=== PATIENT | female | born 1940 | race Caucasian/White ===

== ENCOUNTER → 2016-07-21 | Outpatient (CLI) | payer BC ==
--- NOTE | 2016-07-21 16:21 | KCIC ---
PROCEDURE Bone mineral density exam HISTORY Osteopenia, postmenopausal, takes calcium supplement, steroid use, takes thyroid medication COMPARISON None FINDINGS Bone mineral density exam utilizing DEXA was performed. Left hip bone mineral density of 0.808 grams/centimeter squared corresponds with T-score-1.1 and a Z-score 0.6. Lumbar spine bone mineral density of 1.112 grams/centimeter squared corresponds with T-score 0.6 and a Z-score of 2.9. World Health Organization criteria for bone mineral density interpretation: Normal T-score greater than or equal to-1.0, Osteopenia T score between-1.0 and-2.5, Osteoporosis T-score less than or equal to-2.5. IMPRESSION 1. There is osteopenia of the left hip. 2. There is normal bone density of the lumbar spine. Electronically signed by: Juan Osorio MD (July 21, 2016 16:20:30)
== END | disposition home or self-care (01) ==
LOC: KCIC DEXA 15:38
PROVIDERS: ATTEND Internal Medicine
DX: Z78.0 Asymptomatic menopausal state (principal); M85.88 Other specified disorders of bone density and structure, other site
CPT/HCPCS: 77080

== ENCOUNTER 2016-10-03 20:02 | Emergency (ER) | payer OTHER, BC ==
[~2016-10-03] VITALS: Ht 154.9 cm; Wt 69.4 kg
[2016-10-03 20:27] VITALS: BP 142/86
[2016-10-03] MEDS ORDERED: DIPHTH,PERTUSS(ACELL),TET TOX 0.5 ML DISP.SYRIN. VAX IM ONE (20:30)
[2016-10-03] MEDS ORDERED: NEOMY/BACITR/POLYMYXIN OINT PACKET. TP ONE (21:00)
[2016-10-03] MEDS ORDERED: ONDANSETRON ODT 4 MG TAB.RAPDIS. PO ONE (21:00)
[2016-10-03] MEDS ORDERED: CONTRAST GIVEN MC PRN (22:15)
[2016-10-03] MEDS ORDERED: IOHEXOL 300 MG/ML 75 ML VIAL IV ONE (22:30)
[2016-10-03 22:44] LABS: CALCIUM 11.1 mg/dL (8.5-10.1); CREATININE 0.9 mg/dL (0.6-1.0); GFR 61.4; POTASSIUM 4.1 mmol/L (3.5-5.1)
[2016-10-03 22:48] LABS: BASO # 0.1 x10^3/uL (0.0-0.2); BASO % 1 % (0-3); EOS % 1 % (0-3); HEMATOCRIT 39.9 % (36.0-47.0); HEMOGLOBIN 13.1 g/dL (12.0-15.5); LYMPH # 2.5 x10^3/uL (1.0-4.8); LYMPH % 21 % (24-48); MEAN CORPUSCULAR HEMOGLOBIN 29 pg (25-35); MEAN CORPUSCULAR HGB CONC 33 g/dL (31-37); MEAN CORPUSCULAR VOLUME 89 fL (79-100); MONO % 8 % (0-9); NEUT % 70 % (31-73); PLATELET COUNT 284 x10^3/uL (140-400); RED BLOOD COUNT 4.47 x10^6/uL (3.50-5.40); WHITE BLOOD COUNT 12.2 x10^3/uL (4.0-11.0)
[2016-10-03 22:56] LABS: BILIRUBIN,URINE NEGATIVE (NEG); GLUCOSE,URINE NEGATIVE (NEG); NITRITE,URINE NEGATIVE (NEG); PROTEIN,URINE 30 mg/dL (NEG-TRACE); UROBILINOGEN,URINE 0.2 mg/dL (0.2 mg/dL)
[2016-10-03 22:58] LABS: PROTHROMBIN TIME PATIENT 12.6 SEC (11.7-14.0)
[2016-10-03 23:12] LABS: WBC,URINE 20-40 /HPF (0-4)
[2016-10-03 23:13] LABS: BACTERIA,URINE MOD /HPF (0-FEW); SQUAMOUS EPITHELIAL CELL,UR MOD /LPF
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
[2016-10-04] MEDS ORDERED: CIPR500T94 PO (00:42)
[2016-10-04] MEDS ORDERED: ACET-704 PO (00:42)
[2016-10-04] MEDS ORDERED: CYCL10TA2 PO (00:42)
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
[2016-10-04 03:43] LABS: POTASSIUM ISTAT 3.7 mmol/L (3.5-5.0)
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
== END 2016-10-04 00:45 | disposition home or self-care (01) ==
LOC: ER 20:02
DX: S50.12XA Contusion of left forearm, initial encounter (principal); S60.022A Contusion of left index finger without damage to nail, initial encounter; S60.221A Contusion of right hand, initial encounter; S80.02XA Contusion of left knee, initial encounter; S80.01XA Contusion of right knee, initial encounter; S27.321A Contusion of lung, unilateral, initial encounter; N39.0 Urinary tract infection, site not specified; V49.49XA Driver injured in collision with other motor vehicles in traffic accident, initial encounter; E03.9 Hypothyroidism, unspecified; Z90.49 Acquired absence of other specified parts of digestive tract; Y93.89 Activity, other specified; Y92.89 Other specified places as the place of occurrence of the external cause; Y99.8 Other external cause status
CPT/HCPCS: 36415; 71260; 73090; 73130; 74177; 80047; 80048; 81001; 85027; 85610; 85730; 90471; 90715; 99285; Q0162; Q9967

== ENCOUNTER → 2016-11-18 | Outpatient (CLI) | payer OTHER, BC ==
[~2016-11-18] MED LIST: ACET-704 PO; CIPR500T94 PO; CYCL10TA2 PO
--- NOTE | 2016-11-18 10:24 | KCIC ---
PELVIS W/TV History: Enlarged uterus, fibroid seen on CT Comparison: October 03, 2016 CT exam. Findings: Multiple transabdominal sonographic images of the pelvis are submitted. Pelvic structures are poorly visualized. Transvaginal ultrasound: Multiple transvaginal sonographic images of the pelvis are submitted. Uterus measured 7.7 x 5.2 x 5.9 cm. Uterus is retroflexed. No free fluid is demonstrated. Right ovary measured 2.3 x 1.7 x 2.1 cm. Left ovary measured 1.9 x 1.6 x 1.8 cm. There is normal low resistance vascularity of both ovaries. There is a heterogeneous mass of the superior uterus near the fundus up to 3.7 x 3.8 x 5.4 cm, some associated calcification. Endometrium measures 0.5 cm. Impression: 1. There is somewhat heterogeneous calcified uterine mass near the fundus, likely a fibroid. 2. Endometrial thickness of 0.5 cm is considered borderline thickened in a postmenopausal patient. Electronically signed by: Cecilio Osorio MD (11/18/2016 10:20 AM) [id number]
--- NOTE | 2016-11-18 10:28 | KCIC ---
RENAL COMPLETE BILATERAL History: Renal cysts Comparison: CT exam October 03, 2016 Findings: Multiple sonographic images of the kidneys and retroperitoneal structures are submitted. Right kidney measured 10.5 x 3.9 x 4.1 cm. Left kidney measured 10.2 x 4.1 x 4.2 cm. There is no hydronephrosis of either kidney. Abdominal aortic proximally is obscured by bowel gas, within normal limits in caliber at the mid and distal segments up to 1.6 cm. There is segmental visualization of the inferior vena cava. Urinary bladder morphology is within normal limits. Ureteral jets are not seen during exam. There is a hypoechoic lesion of the superior right kidney up to 1.1 x 0.9 x 1.5 cm although some internal echoes and possible thin septation present. Another 0.6 cm small hypodense lesion of the superior right kidney as seen on CT could not be visualized by ultrasound. Impression: 1. There is a somewhat complex probable cyst with associated septation of the superior right kidney, Bosniak 2F for which 6-12 month follow-up should be considered. Another small 0.6 cm hypodense lesion of the superior right kidney as seen on CT could not be visualized by ultrasound. Electronically signed by: Cecilio Osorio MD (11/18/2016 10:24 AM) [id number]
== END | disposition home or self-care (01) ==
LOC: KCIC US 07:57
PROVIDERS: ATTEND Nurse Practitioner Occupational Health
DX: N85.2 Hypertrophy of uterus (principal); N28.1 Cyst of kidney, acquired
CPT/HCPCS: 76770; 76830; 76856